=== PATIENT | male | born 1960 ===

== ENCOUNTER → 2017-12-11 | Outpatient (CLI) | payer OTHER ==
[~2017-12-11] MED LIST: IBUP-1623; OMNIPAQUE 350 MG/ML, 100ML BOTTLE ONE
== END | disposition home or self-care (01) ==
LOC: RAD 10:10
PROVIDERS: ATTEND Urology
DX: K44.9 Diaphragmatic hernia without obstruction or gangrene (principal); N50.9 Disorder of male genital organs, unspecified; D40.11 Neoplasm of uncertain behavior of right testis
CPT/HCPCS: 71260; 74177; Q9967

== ENCOUNTER 2018-05-10 09:35 | Emergency (ER) | payer MEDICAID, OTHER ==
[~2018-05-10] VITALS: Ht 170.2 cm; Wt 65.0 kg
[~2018-05-10 09:35] MED LIST changes: -OMNIPAQUE 350 MG/ML, 100ML BOTTLE ONE
[2018-05-10 09:47] VITALS: BP 115/80
--- NOTE | 2018-05-10 09:51 | NUR ---
[place] [facility] [place] +EtOH. A&O to self. Lac to posterior head. Bleeding controlled. Placed on NIBP and pulse ox. Will continue to monitor.
[2018-05-10] MEDS ORDERED: PLEASE ENTER HEIGHT AND WEIGHT MC SCH (10:00)
[2018-05-10] MEDS ORDERED: DIPH,PERTUSS(ACELL),TET VAC/PF 0.5 ML IM-VACC ONE ×2 (10:00→10:13)
--- NOTE | 2018-05-10 11:23 | NUR ---
PT AMB IN HALLS WITH SISTER. VERY PERSISTENT ABOUT WANTING TO LEAVE. PA INFORMED. DC PAPERS RECEIVED
== END 2018-05-10 11:28 | disposition home or self-care (01) ==
LOC: ED 11:22
DX: S01.01XA Laceration without foreign body of scalp, initial encounter (principal); F10.120 Alcohol abuse with intoxication, uncomplicated; W01.0XXA Fall on same level from slipping, tripping and stumbling without subsequent striking against object, initial encounter; Y93.89 Activity, other specified; Y92.89 Other specified places as the place of occurrence of the external cause; Y99.8 Other external cause status; Y90.9 Presence of alcohol in blood, level not specified
CPT/HCPCS: 70450; 72125; 90471; 90715; 99284

== ENCOUNTER 2018-05-10 16:10 | Emergency (ER) | payer MEDICAID ==
[~2018-05-10] VITALS: Ht 162.6 cm; Wt 85.0 kg
--- NOTE | 2018-05-10 16:24 | NUR ---
pt was here this am same thing fell and head lac on sameera dc home pt was drinking again and fell having another lac on left side of head call light within reach given report to primary rn
--- NOTE | 2018-05-10 16:43 | NUR ---
FIRST CONTACT WITH PT: Pt resting on gurney connected to potline monitor, NIBP, and continous pulse ox. Recieved report from AILYN Flores. All questions answered. NADN. Pt here prior today with ETOH intoxication. Pt has ETOH odor on breath. Pt has inappropriate speech. Pt Alert to self and situation. All safety measures in place. Call light within reach.
[2018-05-10] MEDS ORDERED: LIDOCAINE 1%-EPI 1:100K, 20ML SQ ONE (17:00)
--- NOTE | 2018-05-10 17:08 | NUR ---
Pt transported to imaging on [facility].
--- NOTE | 2018-05-10 17:29 | NUR ---
Pt back to room from CT. Pt ambulating down medeiros by self. Pt escorted to restroom by ED senior staff specialized employment. NADN.
--- NOTE | 2018-05-10 18:05 | NUR ---
Provided report to AILYN Yeung. All questions answered.
--- NOTE | 2018-05-10 18:48 | NUR ---
Sitter at bedside with pt for observation to keep pt safe from falls. CARMENN. Pt resting on gurney with warm blanket provided.
--- NOTE | 2018-05-10 19:00 | NUR ---
Provided report to AILYN Garcia. All questions answered.
--- NOTE | 2018-05-10 20:00 | NUR ---
PT SLEEPING ON GURNEY, SIDE RAILS UP AND SITTER IN ROOM FOR SAFETY.
--- NOTE | 2018-05-10 21:15 | NUR ---
PT RESTING ON ELISE CELESTE, DENIES NEEDS AT THIS TIME, MONITORS APPLIED, SIDERAILS UP X2, CALL LIGHT WITHIN REACH.
[2018-05-10 22:58] VITALS: BP 121/78
--- NOTE | 2018-05-10 22:59 | NUR ---
ASSISTED PT UP IN ROOM, PT ALERT AND ANSWERS QUESTIONS APPROPRIATELY, PT STATED "I FEEL REALLY DIZZY", ASSISTED PT BACK ON GURNEY, MONITORS IN PLACE, CALL LIGHT WITHIN REACH.
--- NOTE | 2018-05-10 23:50 | NUR ---
PT A&OX4, ABLE TO AMBULATE WITHOUT DIFFICULTY, PROVIDED PT WITH SNACK, DISCUSSED PT TO BE DISCHARGED, PT VERBALIZED UNDERSTANDING AND AGREEMENT
== END 2018-05-10 23:53 | disposition home or self-care (01) ==
LOC: ED 17:29
DX: S01.01XA Laceration without foreign body of scalp, initial encounter (principal); F10.220 Alcohol dependence with intoxication, uncomplicated; W18.30XA Fall on same level, unspecified, initial encounter; Y93.89 Activity, other specified; Y92.89 Other specified places as the place of occurrence of the external cause; Y99.8 Other external cause status
CPT/HCPCS: 13121; 70450; 99285

== ENCOUNTER 2018-06-05 14:36 | Inpatient (IN) | payer MEDICAID ==
[~2018-06-05] VITALS: Ht 170.2 cm; Wt 73.3 kg
--- NOTE | 2018-06-05 15:12 | NUR ---
ERP TO THE BS
--- NOTE | 2018-06-05 15:44 | NUR ---
SLEEPING AROUSES EASY
--- NOTE | 2018-06-05 17:47 | NUR ---
PT NOTED TO BE IN AF AT A RAPID RATE 12 LEAD COMPLETED AND ERP AWARE IV AND FLUIDS STARTED
[2018-06-05] MEDS ORDERED: SODIUM CHLORIDE FLUSH 10ML SYR IVF ONE (18:00)
[2018-06-05] MEDS ORDERED: SODIUM CHLORIDE 0.9% 1,000ML IVBOLUS ONE (18:00)
--- NOTE | 2018-06-05 18:59 | NUR ---
REPORT TO CESAR INCLUDING PT TO 2ND LTR THEN EVAL HR 2ND LTR INFUSING
--- NOTE | 2018-06-05 19:00 | NUR ---
REPORT RECEIVED FROM AILYN COLLINS AT BEDSIDE, THIS RN TO ASSUME CARE AT THIS TIME. PT HAS HR 120-130'S, AFIB, NO ECTOPY. ERP SINAN AWARE AND AT BEDSIDE TO REASSESS. VERBAL ORDER RECEIVED FOR SECOND LITER NS BOLUS.
[2018-06-05] MEDS ORDERED: SODIUM CHLORIDE 0.9% 1,000 ML IV ONE ×2 (19:30)
--- NOTE | 2018-06-05 20:00 | NUR ---
ERP SINAN AT BEDSIDE. ERP AWARE HR REMAINS 130-140'S AFIB ON PIT RECORDER, NO ECTOPY AFTER SECOND LITER NS. RN AWAITING ORDERS AT THIS TIME.
[2018-06-05] MEDS ORDERED: DILTIAZEM 5 MG/ML, 10ML ONE (20:09)
--- NOTE | 2018-06-05 20:20 | NUR ---
PT MEDICATED PER EMAR, TOLERATED WELL. DILTIAZEM PUSHED SLOWLY OVER 5 MIN. PT IS SLEEPING INTERMITTENTLY, AWAKENS TO VOICE. ORIENTED X 4 WHEN AWAKE. NEURO INTACT. HR 100-110'S, AFIB, NO ECTOPY S/P DILTIAZEM. PT AWAITING LAB AND CXR RESULTS.
[2018-06-05 20:25] LABS: MEAN CORPUSCULAR HEMOGLOBIN 24.4 pg (27.5-34.5); MEAN CORPUSCULAR VOLUME 78.9 fL (81-97); MEAN PLATELET VOLUME 7.2 fL (7.4-10.4); PLATELET COUNT 207 x10^3/uL (130-400); RED BLOOD COUNT 4.59 x10^6/uL (4.38-5.82); RED CELL DISTRIBUTION WIDTH 19.4 % (9.4-14.8)
[2018-06-05] MEDS ORDERED: DILTIAZEM 5 MG/ML, 5ML IV ONE (20:30)
[2018-06-05 20:33] LABS: INTERNATIONAL NORMALIZED RATIO 0.97 (0.93-1.1); PROTHROMBIN TIME 10.2 Seconds (9.6-11.5)
--- NOTE | 2018-06-05 20:33 | NUR ---
DOT MENON NOTIFIED BP 91/46 S/P DILTIAZEM. HR 90-100'S AFIB WITH NO ECTOPY AT THIS TIME. NO ORDERS RECEIVED AT THIS TIME, WILL CONTINUE TO MONITOR.
[2018-06-05 20:35] LABS: ALANINE AMINOTRANSFERASE 51 U/L (12-78); ALBUMIN 2.4 g/dL (3.4-5.0); ANION GAP 13 mmol/L (5-15); CALCIUM 6.8 mg/dL (8.5-10.1); CHLORIDE 114 mmol/L (98-107); CREATININE 0.47 mg/dL (0.7-1.3)
[2018-06-05 20:39] LABS: ALKALINE PHOSPHATASE 89 U/L (45-117); BILIRUBIN,TOTAL 0.3 mg/dL (0.2-1.0); FREE T4 (FREE THYROXINE) 1.19 ng/dL (0.76-1.46); TOTAL PROTEIN 6.1 g/dL (6.4-8.2); TROPONIN I < 0.015 ng/mL (0.000-0.045)
[2018-06-05 20:47] LABS: BASOPHILS # (AUTO) 0.02 x10^3/uL (0-0.1); BASOPHILS % (AUTO) 1 % (0-1); EOSINOPHILS % (AUTO) 0 % (1-7); LYMPHOCYTES # (AUTO) 0.88 x10^3/uL (1-3.4); LYMPHOCYTES % (AUTO) 38 % (22-44); MD SCAN; MONOCYTES # (AUTO) 0.21 x10^3/uL (0.2-0.8); MONOCYTES % (AUTO) 9 % (2-9); NEUTROPHILS # (AUTO) 1.22 x10^3/uL (1.8-6.8); NEUTROPHILS % (AUTO) 52 % (42-75)
--- NOTE | 2018-06-05 21:04 | NUR ---
labs reviewed by DOT Ryan including glucose 67 and WBC 2.3. pt given soda x 2 per ERP instruction, tolerated well. pt sleeping intermittently, resps even and unlabored. HR 90's - 110's, afib with no ectopy. pt to be admitted, awaiting room assignment and transport.
[2018-06-05] MEDS ORDERED: DILTIAZEM 125 MG in SODIUM CHLORIDE 0.9% 100 ML IV SCH ×2 (21:30→23:30)
[2018-06-05] MEDS ORDERED: SODIUM CHLORIDE FLUSH 10ML SYR IVF PRN (21:30)
[2018-06-05] MEDS ORDERED: ONDANSETRON 2MG/ML, 2ML IVPush PRN (21:30)
--- NOTE | 2018-06-05 22:03 | NUR ---
pt incontinent of urine, linens and gown changed. delano-care provided. urinal placed at bedside. diltiazem gtt started, all monitors in place. HR 120's afib with no ectopy. Addendum: 06/05/18 at 2205 by NATHENEN pt incontinent of urine, linens and gown changed. delano-care provided. urinal placed at bedside. diltiazem gtt started, all monitors in place. HR 120's afib with no ectopy. pt is a&ox4, resps even and unlabored. pt updated with POC.
--- NOTE | 2018-06-05 22:14 | NUR ---
report called to receiving AILYN Burton pt awaiting transport to cardiac tele 518.
--- NOTE | 2018-06-05 22:20 | NUR ---
REPEAT FINGERSTICK BLOOD GLUCOSE 107.
--- NOTE | 2018-06-05 22:22 | NUR ---
PT A&O, RESPS EVEN AND UNLABORED, NEURO INTACT. PT URINATED USING URINAL, URINE SAMPLE COLLECTED AND SENT TO LAB. PT IS AFIB RATE 100'S ON MONITOR, NO ECTOPY. PT TRANSPORTED WITH BELONGINGS TO ROOM 518, DILTIAZEM INFUSING AT TIME OF TRANSPORT. NADN AT TRANSPORT.
[2018-06-05 22:32] VITALS: BP 101/72
[2018-06-05] MEDS: SODIUM CHLORIDE 0.9% 1,000 ML IV SCH (23:08)
[2018-06-05 23:48] LABS: AMPHETAMINE SCREEN, URINE Negative (Negative); BARBITURATE SCREEN, URINE Negative (Negative); BENZODIAZEPINE SCREEN, URINE Negative (Negative); CANNABINOID SCREEN, URINE Negative (Negative); COCAINE SCREEN, URINE Negative (Negative); METHADONE SCREEN, URINE Negative (Negative); OPIATE SCREEN, URINE Negative (Negative)
[2018-06-06 01:05] VITALS: BP 98/58
[2018-06-06 06:09] LABS: CHLORIDE 113 mmol/L (98-107)
[2018-06-06 06:15] LABS: MEAN CORPUSCULAR HEMOGLOBIN 25.4 pg (27.5-34.5); MEAN CORPUSCULAR VOLUME 77.1 fL (81-97); MEAN PLATELET VOLUME 7.1 fL (7.4-10.4); PLATELET COUNT 193 x10^3/uL (130-400); RED BLOOD COUNT 4.16 x10^6/uL (4.38-5.82); RED CELL DISTRIBUTION WIDTH 19.7 % (9.4-14.8)
[2018-06-06 06:26] LABS: ANION GAP 9 mmol/L (5-15); CALCIUM 6.9 mg/dL (8.5-10.1); THYROID STIMULATING HORMONE 0.342 mIU/L (0.358-3.740)
[2018-06-06] MEDS ORDERED: DILTIAZEM 125 MG in SODIUM CHLORIDE 0.9% 100 ML IV SCH ×2 (06:30→21:30)
[2018-06-06] MEDS: SODIUM CHLORIDE 0.9% 1,000 ML IV SCH (06:31)
[2018-06-06 06:39] LABS: BASOPHILS % (AUTO) 0 % (0-1); EOSINOPHILS # (AUTO) 0.01 x10^3/uL (0-0.4); EOSINOPHILS % (AUTO) 1 % (1-7); LYMPHOCYTES # (AUTO) 0.64 x10^3/uL (1-3.4); LYMPHOCYTES % (AUTO) 21 % (22-44); MD SCAN; MONOCYTES # (AUTO) 0.32 x10^3/uL (0.2-0.8); MONOCYTES % (AUTO) 11 % (2-9); NEUTROPHILS # (AUTO) 2.02 x10^3/uL (1.8-6.8); NEUTROPHILS % (AUTO) 67 % (42-75)
[2018-06-06 06:51] LABS: TROPONIN I < 0.015 ng/mL (0.000-0.045)
[2018-06-06 07:05] VITALS: BP 106/58
[2018-06-06] MEDS ORDERED: POTASSIUM CHLORIDE 20 MEQ, MVI ADULT 10 ML, FOLIC ACID 1 MG, MAGNESIUM SULFATE 1 GM in ... IV SCH (07:27)
[2018-06-06] MEDS ORDERED: ACETAMINOPHEN 325 MG TABLET PO PRN (07:30)
[2018-06-06] MEDS ORDERED: LORazepam 2 MG/ML, 1ML IV PRN ×5 (07:30)
[2018-06-06] MEDS ORDERED: ONDANSETRON 2MG/ML, 2ML IV PRN (07:30)
[2018-06-06] MEDS ORDERED: DEXTROSE 50%, 50ML SYRINGE IVPush ONE (07:30)
[2018-06-06] MEDS ORDERED: PANTOPRAZOLE 40 MG IV IVPush SCH (09:00)
[2018-06-06] MEDS: ENOXAPARIN 40 MG/0.4 ML SQ SCH (09:59)
[2018-06-06] MEDS: THIAMINE 100MG TABLET PO SCH ×2 (10:00→20:25)
[2018-06-06 10:51] LABS: ABSOLUTE RETICS # 0.031 x10^6/uL (0.5-1.5); RED BLOOD COUNT 4.13 x10^6/uL (4.38-5.82); RETICULOCYTE COUNT % 0.75 % (0.5-1.5)
[2018-06-06 13:10] VITALS: BP 121/68
[2018-06-06] MEDS: LORazepam 2 MG/ML, 1ML IV PRN ×2 (15:56→19:29)
[2018-06-06 19:26] VITALS: BP 129/80
[2018-06-07] MEDS: LORazepam 2 MG/ML, 1ML IV PRN ×3 (00:38→12:55)
[2018-06-07 01:26] VITALS: BP 124/70
[2018-06-07] MEDS: SODIUM CHLORIDE 0.9% 1,000 ML IV SCH (01:29)
[2018-06-07 05:22] LABS: BASOPHILS % (AUTO) 0 % (0-1); EOSINOPHILS # (AUTO) 0.03 x10^3/uL (0-0.4); EOSINOPHILS % (AUTO) 1 % (1-7); LYMPHOCYTES # (AUTO) 0.63 x10^3/uL (1-3.4); LYMPHOCYTES % (AUTO) 19 % (22-44); MD NO; MEAN CORPUSCULAR HEMOGLOBIN 25.1 pg (27.5-34.5); MEAN CORPUSCULAR HGB CONC 32.5 g/dL (33.2-36.2); MEAN CORPUSCULAR VOLUME 77.1 fL (81-97); MEAN PLATELET VOLUME 7.9 fL (7.4-10.4); MONOCYTES # (AUTO) 0.34 x10^3/uL (0.2-0.8); MONOCYTES % (AUTO) 11 % (2-9); NEUTROPHILS # (AUTO) 2.26 x10^3/uL (1.8-6.8); NEUTROPHILS % (AUTO) 69 % (42-75); PLATELET COUNT 147 x10^3/uL (130-400); RED BLOOD COUNT 3.86 x10^6/uL (4.38-5.82); RED CELL DISTRIBUTION WIDTH 19.3 % (9.4-14.8)
[2018-06-07 05:26] LABS: CHLORIDE 106 mmol/L (98-107)
[2018-06-07 05:33] LABS: ALANINE AMINOTRANSFERASE 43 U/L (12-78); ALBUMIN 2.2 g/dL (3.4-5.0); ALKALINE PHOSPHATASE 76 U/L (45-117); ANION GAP 5 mmol/L (5-15); BILIRUBIN,TOTAL 0.7 mg/dL (0.2-1.0); CALCIUM 7.4 mg/dL (8.5-10.1); CREATININE 0.54 mg/dL (0.7-1.3); TOTAL PROTEIN 5.6 g/dL (6.4-8.2)
[2018-06-07] MEDS: PANTOPROZOLE 40MG TABLET PO SCH (06:32)
[2018-06-07 07:25] VITALS: BP 145/77
[2018-06-07] MEDS: D5%-0.9% NACL 1,000 ML IV SCH (07:48)
[2018-06-07] MEDS: THIAMINE 100MG TABLET PO SCH ×2 (09:48→21:11)
[2018-06-07] MEDS: ENOXAPARIN 40 MG/0.4 ML SQ SCH (09:49)
[2018-06-07] MEDS: POTASSIUM CHLORIDE 20 MEQ, MVI ADULT 10 ML, FOLIC ACID 1 MG, MAGNESIUM SULFATE 1 GM in ... IV SCH (09:49)
[2018-06-07] MEDS ORDERED: ALUMINUM/MAG/SIMETHICONE 30 ML UDC PO ONE (10:00)
[2018-06-07 10:31] LABS: TROPONIN I < 0.015 ng/mL (0.000-0.045)
[2018-06-07 13:10] VITALS: BP 125/78
[2018-06-07 19:35] VITALS: BP 139/80
[2018-06-08 01:29] VITALS: BP 126/70
[2018-06-08] MEDS: D5%-0.9% NACL 1,000 ML IV SCH ×2 (01:51→08:38)
[2018-06-08] MEDS: PANTOPROZOLE 40MG TABLET PO SCH (05:11)
[2018-06-08 05:36] LABS: MEAN CORPUSCULAR HEMOGLOBIN 25.5 pg (27.5-34.5); MEAN CORPUSCULAR HGB CONC 33.1 g/dL (33.2-36.2); MEAN CORPUSCULAR VOLUME 77.2 fL (81-97); MEAN PLATELET VOLUME 8.3 fL (7.4-10.4); PLATELET COUNT 153 x10^3/uL (130-400); RED CELL DISTRIBUTION WIDTH 19.1 % (9.4-14.8)
[2018-06-08 05:40] LABS: ANION GAP 4 mmol/L (5-15); CALCIUM 7.8 mg/dL (8.5-10.1); CHLORIDE 105 mmol/L (98-107); CREATININE 0.57 mg/dL (0.7-1.3)
[2018-06-08 07:15] VITALS: BP 115/73
[2018-06-08 07:33] LABS: MD YES
[2018-06-08 07:34] LABS: <PLATELET ESTIMATE> ADEQUATE; <PLT MORPHOLOGY> NORMAL PLT MORPH; ANISOCYTOSIS 1+; EOS#(MANUAL) 0.09 x10^3/uL (0.0-0.4); EOS% (MANUAL) 2 % (1-7); LYMPH#(MANUAL) 0.47 x10^3/uL (1-3.4); LYMPHS% (MANUAL) 11 % (22-44); MICROCYTOSIS 1+; MONOS#(MANUAL) 0.43 x10^3/uL (0.3-2.7); MONOS% (MANUAL) 10 % (2-9); SEG#(MANUAL) 3.31 x10^3/uL (1.8-6.8); SEGS% (MANUAL) 77 % (42-75)
[2018-06-08 07:35] LABS: HYPOCHROMIA 1+; TARGET CELLS 1+
[2018-06-08] MEDS: ENOXAPARIN 40 MG/0.4 ML SQ SCH (08:38)
[2018-06-08] MEDS: THIAMINE 100MG TABLET PO SCH (08:38)
[2018-06-08] MEDS: POTASSIUM CHLORIDE 20 MEQ, MVI ADULT 10 ML, FOLIC ACID 1 MG, MAGNESIUM SULFATE 1 GM in ... IV SCH (09:44)
[2018-06-08 13:05] VITALS: BP 125/78
[2018-06-08] MEDS ORDERED: THIA100T67 PO (14:35)
[2018-06-08] MEDS ORDERED: PANT40TA5 PO (14:35)
[2018-06-08] MEDS ORDERED: FOLI-17 PO (14:35)
== END 2018-06-08 15:43 | disposition home or self-care (01) | DRG 309 ==
LOC: ED 18:00 → EDIP 21:19 → 5SO 22:25
PROVIDERS: ADMIT Internal Medicine; ATTEND Internal Medicine
DX: I48.0 Paroxysmal atrial fibrillation (principal); C16.9 Malignant neoplasm of stomach, unspecified; J98.11 Atelectasis; D50.9 Iron deficiency anemia, unspecified; D63.8 Anemia in other chronic diseases classified elsewhere; E16.2 Hypoglycemia, unspecified; E83.39 Other disorders of phosphorus metabolism; E87.6 Hypokalemia; F10.220 Alcohol dependence with intoxication, uncomplicated; Z59.0 Homelessness; Y90.9 Presence of alcohol in blood, level not specified
CPT/HCPCS: 36415; J7042; 71045; 80048; 80053; 80307; 82728; 82962; 83540; 83550; 83735; 84100; 84439; 84443; 84481; 84484; 85025; 85045; 85610; 85730; 93005; 93306; 96361; 96374; G0378; J1650; J2405; J3475; J3480; C9113; J2060; J7030

== ENCOUNTER 2018-07-02 14:42 | Emergency (ER) | payer MEDICAID ==
[~2018-07-02] VITALS: Ht 170.2 cm; Wt 59.0 kg
[~2018-07-02 14:42] MED LIST changes: +FOLI-17 PO; +PANT40TA5 PO; +THIA100T67 PO
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
--- NOTE | 2018-07-02 14:56 | NUR ---
CUATEAT RN. PT DESATED TO 87% WHILE SLEEPING, 2L NC O2 APPLIED, PULSE OX 96%. FALL PRECAUTIONS IN PLACE WITH SIDE RAILS UP.
--- NOTE | 2018-07-02 15:13 | NUR ---
BEDSIDE REPORT AND CARE TO PRIMARY AILYN AMES.
--- NOTE | 2018-07-02 15:32 | NUR ---
ASSUMED CARE OF PT. PT IS RESTING. PT HAS EQUAL CHEST RISE AND GOOD CAP REFILL. VSS.
--- NOTE | 2018-07-02 16:55 | NUR ---
PT STILL RESTING IN BED.
--- NOTE | 2018-07-02 19:19 | NUR ---
PT REMAINS IN BED. PT STILL VERY DIFFICULT TO AROUSE SECONDARY TO INTOXICATION. PT RESTING IN ROOM. VSS.
--- NOTE | 2018-07-02 21:04 | NUR ---
BLANKET PROVIDED TO PT, PT REMAINS IN DEEP SLEEP. ATTEMPTED TO AMBULATE AND STRUGGLING WITH SITTING UP.
--- NOTE | 2018-07-02 23:11 | NUR ---
PT AWAKING WISHING TO LEAVE. PT GIVEN DC INSTRUCTIONS AFTER AMBULATING SAFELY AND EATING SOME FOOD. PT OFFERED A TAXI VOUCHER AND REFUSED. REPORTED I LIVE CLOSE AND WILL WALK HOME. PT REPORTED HE NO LONGER FELT "DRUNK, IM GOOD PLUS I WANT TO GO GET A DRINK ANYWAYS" PT ENCOURAGE TO SEEK COUNSELING FOR HEAVY DRINKING AND GIVEN RESOURCES HANDOUT. PT DC AT THIS TIME. Patient/Caregiver given discharge instructions and they have confirmed that they understand the instructions. Patient ambulatory with steady gait.
[2018-07-02 23:13] VITALS: BP 133/74
== END 2018-07-02 23:14 | disposition home or self-care (01) ==
LOC: ED 17:07
DX: F10.220 Alcohol dependence with intoxication, uncomplicated (principal)
CPT/HCPCS: 99283

== ENCOUNTER 2018-07-31 15:01 | Emergency (ER) | payer MEDICAID ==
[~2018-07-31] VITALS: Ht 167.6 cm; Wt 70.0 kg
--- NOTE | 2018-07-31 15:05 | NUR ---
DECOMINATED IN SHOWER ROOM FOR VISUALIZED BED BUGS BEFORE BEING ROOMED
--- NOTE | 2018-07-31 15:30 | NUR ---
BIB BY EMERSON. BYSTANDER CALLED EMS AFTER PATIENT UNABLE TO STAND AFTER FALLING DOWN D/T PRESUMED INTOXICATION. DENIES ETOH/ILLICITS. HOWEVER, STRONG SMELL OF ETOH NOTED PATIENT UNABLE TO STAY AWAKE FOR CONVERSATION/UNABLE TO AMBULATE NO FOCAL DEFICITS OR TRAUMA NOTED EMS REPORTS FSBS OF 165
--- NOTE | 2018-07-31 17:21 | NUR ---
PATIENT AWOKEN FOR REASSESSMENT- REMAINS DROWSY/UNABLE TO TOLERATE PO FLUIDS CONTINUES TO REQUIRE OXYGEN (2L) WILL CONTINUE TO MONITOR FOR READINESS FOR ROAD TEST
--- NOTE | 2018-07-31 18:13 | NUR ---
WITH RE-ASSESSMENT PATIENT NOW AWAKE/INTERACTIVE PROVIDED WITH PO FLUIDS/SOLIDS/CLOTHES (PRIOR CLOTHES CONTAMINATED) TOLERATING PO/AMBULATED W/OUT DIFFICULTY PROVIDED WITH TAXI VOUCHER HE WAS DISCHARGED
[2018-07-31 18:18] VITALS: BP 124/70
== END 2018-07-31 18:27 | disposition home or self-care (01) ==
LOC: ED 18:15
DX: F10.220 Alcohol dependence with intoxication, uncomplicated (principal); I48.91 Unspecified atrial fibrillation
CPT/HCPCS: 99283

== ENCOUNTER 2018-08-20 09:34 | Emergency (ER) | payer MEDICAID ==
[~2018-08-20] VITALS: Ht 165.1 cm; Wt 68.0 kg
[2018-08-20 09:46] VITALS: BP 114/74
--- NOTE | 2018-08-20 10:28 | NUR ---
PT IN ROOM AT THIS TIME. PT PLACED ON O2 AND NIBP MONITORING. PT IN BED RESTING COMFORTABLY. CRACKER, CEREAL, AND WATER PROVIDED.
[2018-08-20] MEDS ORDERED: THIAMINE 100MG TABLET PO ONE (11:00)
--- NOTE | 2018-08-20 11:12 | NUR ---
PT IN BED AND AWAKE AT THIS TIME. PT USING URINAL. PT HAS NO WANTS OR NEEDS AT THIS TIME. PT STATES HE DOESN'T THINK HE CAN WALK AT THIS TIME. PT ENCOURAGED TO EAT FOOD AND DRINK WATER PROVIDED.
[2018-08-20] MEDS ORDERED: THIAMINE 100MG TABLET ONE (12:53)
--- NOTE | 2018-08-20 12:57 | NUR ---
PT WATCHING TV AT THIS TIME. ALL FOOD PROVIDED WAS CONSUMED. PT HAS DRANK 3 12 OZ BOTTLES OF WATER AND HAS A FORTH IN HAND. RESPS EVEN AND UNLABORED.
== END 2018-08-20 14:11 | disposition home or self-care (01) ==
LOC: ED 10:07
DX: F10.229 Alcohol dependence with intoxication, unspecified (principal); Z59.0 Homelessness
CPT/HCPCS: 99283

== ENCOUNTER 2019-01-16 18:32 | Emergency (ER) | payer MEDICAID ==
[~2019-01-16] VITALS: Ht 170.2 cm; Wt 73.0 kg
--- NOTE | 2019-01-16 18:40 | NUR ---
TASK RN: 58 Y/O MALE BIB AMBULANCE WITH C/O ETOH. PER REPORT POLICE CALLED EMS D/T PT BEING UNABLE TO AMBULATE. WHEN THEY ARRIVED PT STATED HE ALSO HAD CP FOR TWO DAYS. PT STATES "MY CHEST HURTS. I DRINK A LOT OF ALCOHOL. I DRINK VODKA. A LOT." PT PLACED ON CONT PULSE OX,NIBP. PT GIVEN WARM BLANKET. BEDSIDE REPORT TO ROSS. PT ALSO STATES "I HAVE CANCER" AND POINTS TO ABDOMINAL AREA.
[2019-01-16] MEDS ORDERED: MAALOX/HYOSCYAMINE/LIDOCAINE 45 ML BTL ONE (18:59)
[2019-01-16] MEDS ORDERED: MAALOX/HYOSCYAMINE/LIDOCAINE 45 ML BTL PO ONE (19:00)
--- NOTE | 2019-01-16 19:01 | NUR ---
MEDS ADMINISTERED PER MAY. PT RESTING ON GURNEY WATCHING TV. LAB AT BEDSIDE.
[2019-01-16 19:19] LABS: ALBUMIN 2.7 g/dL (3.4-5.0); ANION GAP 7 mmol/L (5-15); CALCIUM 7.3 mg/dL (8.5-10.1); CHLORIDE 117 mmol/L (98-107)
[2019-01-16 19:25] LABS: ALANINE AMINOTRANSFERASE 30 U/L (12-78); ALKALINE PHOSPHATASE 96 U/L (45-117); BILIRUBIN,TOTAL 0.4 mg/dL (0.2-1.0); CREATININE 0.71 mg/dL (0.7-1.3); TOTAL PROTEIN 7.7 g/dL (6.4-8.2); TROPONIN I < 0.015 ng/mL (0.000-0.045)
[2019-01-16 19:45] LABS: MD YES; MEAN CORPUSCULAR HEMOGLOBIN 20.1 pg (27.5-34.5); MEAN CORPUSCULAR VOLUME 67.8 fL (81-97); MEAN PLATELET VOLUME 6.7 fL (7.4-10.4); PLATELET COUNT 454 x10^3/uL (130-400); RED BLOOD COUNT 3.78 x10^6/uL (4.38-5.82); RED CELL DISTRIBUTION WIDTH 19.3 % (9.4-14.8)
[2019-01-16 19:48] LABS: ANISOCYTOSIS 1+; BAND#(MANUAL) 0.15 x10^3/uL; BANDS%(MANUAL) 2 % (0-7); BASOS#(MANUAL) 0.23 x10^3/uL (0-0.1); BASOS% (MANUAL) 3 % (0-1); EOS#(MANUAL) 0.38 x10^3/uL (0.0-0.4); EOS% (MANUAL) 5 % (1-7); HYPOCHROMIA 1+; LYMPH#(MANUAL) 1.35 x10^3/uL (1-3.4); LYMPHS% (MANUAL) 18 % (22-44); MICROCYTOSIS 1+; MONOS#(MANUAL) 0.08 x10^3/uL (0.3-2.7); MONOS% (MANUAL) 1 % (2-9); SEG#(MANUAL) 5.33 x10^3/uL (1.8-6.8); SEGS% (MANUAL) 71 % (42-75)
[2019-01-16 19:49] LABS: MEAN CORPUSCULAR HGB CONC 29.6 g/dL (33.2-36.2); TARGET CELLS 1+
[2019-01-16 19:50] LABS: <PLATELET ESTIMATE> INCREASED; <PLT MORPHOLOGY> NORMAL PLT MORPH
--- NOTE | 2019-01-16 20:04 | NUR ---
ALL RESULTS ARE BACK AT THIS TIME. CHART UP FOR RECHECK.
[2019-01-16 20:36] VITALS: BP 122/77
--- NOTE | 2019-01-16 20:36 | NUR ---
PT RESTING ON [employer] WATCHING TV. ELISE. CALL LIGHT IN REACH.
--- NOTE | 2019-01-16 21:05 | NUR ---
PT ELOPED HOSPITAL PRIOR TO DISCHARGE. NO IV PLACED.
== END 2019-01-16 21:06 | disposition left against medical advice (07) ==
LOC: ED 20:18
DX: R07.89 Other chest pain (principal); F10.129 Alcohol abuse with intoxication, unspecified; F17.200 Nicotine dependence, unspecified, uncomplicated; Y90.0 Blood alcohol level of less than 20 mg/100 ml
CPT/HCPCS: 36415; 71045; 80053; 84484; 85025; 93005; 99284

== ENCOUNTER 2019-08-09 10:28 | Emergency (ER) | payer MEDICAID ==
[~2019-08-09] VITALS: Ht 170.2 cm; Wt 63.6 kg
[2019-08-09 11:45] LABS: ALANINE AMINOTRANSFERASE 117 U/L (12-78); ALBUMIN 2.8 g/dL (3.4-5.0); ALKALINE PHOSPHATASE 172 U/L (45-117); ANION GAP 11 mmol/L (5-15); BILIRUBIN,TOTAL 0.2 mg/dL (0.2-1.0); CALCIUM 7.6 mg/dL (8.5-10.1); CHLORIDE 114 mmol/L (98-107); CREATININE 0.54 mg/dL (0.7-1.3); TOTAL PROTEIN 7.1 g/dL (6.4-8.2)
[2019-08-09 11:53] LABS: RED BLOOD COUNT 3.93 x10^6/uL (4.38-5.82)
[2019-08-09 11:54] LABS: MD YES; MEAN CORPUSCULAR HEMOGLOBIN 30.7 pg (27.5-34.5); MEAN CORPUSCULAR HGB CONC 32.8 g/dL (33.2-36.2); MEAN CORPUSCULAR VOLUME 93.8 fL (81-97); MEAN PLATELET VOLUME 6.5 fL (7.4-10.4); PLATELET COUNT 153 x10^3/uL (130-400); RED CELL DISTRIBUTION WIDTH 22.6 % (9.4-14.8)
[2019-08-09 11:57] LABS: ANISOCYTOSIS 1+; BAND#(MANUAL) 0.03 x10^3/uL; BANDS%(MANUAL) 1 % (0-7); EOS#(MANUAL) 0.12 x10^3/uL (0.0-0.4); EOS% (MANUAL) 4 % (1-7); HYPOCHROMIA 1+; LYMPH#(MANUAL) 0.21 x10^3/uL (1-3.4); LYMPHS% (MANUAL) 7 % (22-44); METAMYELOCYTES# (MANUAL) 0.03 x10^3/uL (0-0); METAMYELOCYTES% (MANUAL) 1 % (0-1); MONOS#(MANUAL) 0.27 x10^3/uL (0.3-2.7); MONOS% (MANUAL) 9 % (2-9); SEG#(MANUAL) 2.34 x10^3/uL (1.8-6.8); SEGS% (MANUAL) 78 % (42-75)
[2019-08-09 11:58] LABS: <PLATELET ESTIMATE> ADEQUATE; <PLT MORPHOLOGY> NORMAL PLT MORPH; TARGET CELLS 1+
[2019-08-09] MEDS ORDERED: THIAMINE 100MG TABLET ONE (12:18)
[2019-08-09] MEDS ORDERED: THIAMINE 100MG TABLET PO ONE (12:30)
[2019-08-09] MEDS: NS + 40MEQ KCL 1,000 ML IV SCH ×2 (13:25→17:25)
--- NOTE | 2019-08-09 14:46 | NUR ---
BREAK RN: MEAL TRAY PROVIDED. PT SITTING UP IN [facility], EATING. NAD NOTED.
--- NOTE | 2019-08-09 15:08 | NUR ---
PT CONSUMED ALL OF MEAL. SBA TO BR, PT WITH STEADY GAIT. IVF 2/3 COMPLETE. PT TALKING IN COMPLETE SENTENCES. A&OX4.
[2019-08-09 15:10] VITALS: BP 110/67
--- NOTE | 2019-08-09 17:00 | NUR ---
PT RESTING WITH EYES CLOSED, EASILY AROUSED.
--- NOTE | 2019-08-09 17:56 | NUR ---
PT TO BR WITH A STEADY GAIT. PT REQUESTING TO GO HOME.
== END 2019-08-09 18:00 | disposition home or self-care (01) ==
LOC: ED 12:29
DX: K70.10 Alcoholic hepatitis without ascites (principal); E87.6 Hypokalemia; R74.8 Abnormal levels of other serum enzymes; F10.229 Alcohol dependence with intoxication, unspecified; I48.91 Unspecified atrial fibrillation; Y90.9 Presence of alcohol in blood, level not specified
CPT/HCPCS: 36415; 80051; 80053; 80307; 83690; 85025; 96365; 96366; 96376; 99284; J3480

== ENCOUNTER 2019-09-29 14:53 | Emergency (ER) | payer MEDICAID ==
[~2019-09-29] VITALS: Ht 167.6 cm; Wt 59.1 kg
[~2019-09-29 14:53] MED LIST changes: -PANT40TA5 PO; +PANT40TA6 PO
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
--- NOTE | 2019-09-29 15:18 | NUR ---
PT TO CT VIA [facility].
--- NOTE | 2019-09-29 15:28 | NUR ---
PT RETURNS FROM CT.
[2019-09-29 16:00] VITALS: BP 88/52
--- NOTE | 2019-09-29 16:00 | NUR ---
C-COLLAR REMOVED PER ER PA.
[2019-09-29] MEDS ORDERED: PERMETHRIN CRM 5%, 60GM ONE (17:35)
--- NOTE | 2019-09-29 17:50 | NUR ---
PT VOIDED IN URINAL. A&OX4 NOW, AMBULATORY. NOTED PT TO HAVE BUGS ALL OVER HIS CLOTHES. PT STATES HE'S STAYING ON [address]. ER PA NOTIFIED. PERMETHRIN CREAM PROVIDED TO PT AND INSTRUCTED ON USE. D/C INSTRUCTIONS RV'WD WITH PT. PT AMBULATED OUT OF ED WITHOUT DIFFICULTY. ROOM TERMINALLY CLEANED.
[2019-09-29] MEDS ORDERED: PERMETHRIN CRM 5%, 60GM TP SCH (19:00)
== END 2019-09-29 17:50 | disposition home or self-care (01) ==
LOC: ED 16:41
DX: S09.90XA Unspecified injury of head, initial encounter (principal); F10.120 Alcohol abuse with intoxication, uncomplicated; G89.11 Acute pain due to trauma; M54.2 Cervicalgia; B86 Scabies; W18.39XA Other fall on same level, initial encounter; Y93.01 Activity, walking, marching and hiking; Y92.488 Other paved roadways as the place of occurrence of the external cause; Y99.8 Other external cause status; Y90.9 Presence of alcohol in blood, level not specified
CPT/HCPCS: 70450; 72125; 99285

== ENCOUNTER 2019-10-06 12:02 | Emergency (ER) | payer MEDICAID ==
[~2019-10-06] VITALS: Ht 167.6 cm; Wt 59.0 kg
[~2019-10-06 12:02] MED LIST changes: +PANT40TA5 PO; -PANT40TA6 PO
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
--- NOTE | 2019-10-06 12:40 | NUR ---
PT IN CT AT THIS TIME.
--- NOTE | 2019-10-06 13:42 | NUR ---
PT SLEEPING ON GURNEY. RESPS EVEN AND UNLABORED.
[2019-10-06 14:14] VITALS: BP 103/65
--- NOTE | 2019-10-06 14:49 | NUR ---
PT SLEEPING ON GURNEY. RESPS EVEN AND UNLABORED. PT STILL DROWSY.
--- NOTE | 2019-10-06 15:00 | NUR ---
Patient given discharge instructions and they have confirmed that they understand the instructions. Patient ambulatory with steady gait.
== END 2019-10-06 15:01 | disposition home or self-care (01) ==
LOC: ED 13:00
DX: S09.90XA Unspecified injury of head, initial encounter (principal); R55 Syncope and collapse; E87.6 Hypokalemia; G40.909 Epilepsy, unspecified, not intractable, without status epilepticus; I48.91 Unspecified atrial fibrillation; F10.120 Alcohol abuse with intoxication, uncomplicated; W19.XXXA Unspecified fall, initial encounter; Y93.89 Activity, other specified; Y92.89 Other specified places as the place of occurrence of the external cause; Y99.8 Other external cause status; Y90.0 Blood alcohol level of less than 20 mg/100 ml
CPT/HCPCS: 70450; 99284

== ENCOUNTER 2019-10-10 13:13 | Emergency (ER) | payer MEDICAID ==
[~2019-10-10] VITALS: Ht 170.2 cm; Wt 69.0 kg
--- NOTE | 2019-10-10 13:28 | NUR ---
PT IN [facility]. CARDIAC, NIBP, AND O2 MONITORING IN PLACE
[2019-10-10 14:01] VITALS: BP 116/72
[2019-10-10 14:18] LABS: MEAN CORPUSCULAR HEMOGLOBIN 32.6 pg (27.5-34.5); MEAN CORPUSCULAR HGB CONC 32.6 g/dL (33.2-36.2); MEAN CORPUSCULAR VOLUME 99.9 fL (81-97); MEAN PLATELET VOLUME 6.4 fL (7.4-10.4); PLATELET COUNT 137 x10^3/uL (130-400); RED BLOOD COUNT 2.82 x10^6/uL (4.38-5.82); RED CELL DISTRIBUTION WIDTH 15.8 % (9.4-14.8)
[2019-10-10 14:28] LABS: ALBUMIN 2.6 g/dL (3.4-5.0); ANION GAP 10 mmol/L (5-15); CALCIUM 7.6 mg/dL (8.5-10.1); CHLORIDE 98 mmol/L (98-107)
[2019-10-10 14:32] LABS: ALANINE AMINOTRANSFERASE 38 U/L (12-78); ALKALINE PHOSPHATASE 238 U/L (45-117); BILIRUBIN,TOTAL 0.9 mg/dL (0.2-1.0); CREATININE 0.77 mg/dL (0.7-1.3); TOTAL PROTEIN 6.7 g/dL (6.4-8.2)
[2019-10-10 14:53] LABS: BASOPHILS # (AUTO) 0.01 x10^3/uL (0-0.1); BASOPHILS % (AUTO) 0 % (0-1); EOSINOPHILS # (AUTO) 0.01 x10^3/uL (0-0.4); EOSINOPHILS % (AUTO) 0 % (1-7); LYMPHOCYTES # (AUTO) 0.06 x10^3/uL (1-3.4); LYMPHOCYTES % (AUTO) 1 % (22-44); MONOCYTES # (AUTO) 0.26 x10^3/uL (0.2-0.8); MONOCYTES % (AUTO) 4 % (2-9); NEUTROPHILS # (AUTO) 6.06 x10^3/uL (1.8-6.8); NEUTROPHILS % (AUTO) 95 % (42-75)
[2019-10-10 14:54] LABS: MD SCAN
[2019-10-10] MEDS ORDERED: POTASSIUM CHLORIDE 20 MEQ, MAGNESIUM SULFATE 1 GM, FOLIC ACID 1 MG, THIAMINE 200 MG, MV... IV ONE (15:00)
--- NOTE | 2019-10-10 15:44 | NUR ---
LUNCH BREAK NOTE: SPOKE TO PHARMACY, MARIANO, AND BANANA BAG CAN BE GIVEN IN TWO HOURS. OK PER DR. ROLLINS.
== END 2019-10-10 14:18 ==
LOC: ED 14:17
DX: G40.909 Epilepsy, unspecified, not intractable, without status epilepticus (principal); S00.91XA Abrasion of unspecified part of head, initial encounter; F10.10 Alcohol abuse, uncomplicated; Y90.0 Blood alcohol level of less than 20 mg/100 ml; R55 Syncope and collapse; I48.91 Unspecified atrial fibrillation; Z86.19 Personal history of other infectious and parasitic diseases; X58.XXXA Exposure to other specified factors, initial encounter; Y93.89 Activity, other specified; Y92.89 Other specified places as the place of occurrence of the external cause; Y99.8 Other external cause status
CPT/HCPCS: 36415; 70450; 80053; 80307; 85025; 93005; 99285; J3411; J3475; J3480; J7121

== ENCOUNTER 2019-10-19 11:28 | Emergency (ER) | payer MEDICAID ==
[~2019-10-19] VITALS: Ht 165.1 cm; Wt 65.0 kg
--- NOTE | 2019-10-19 11:39 | NUR ---
PT HAS NS INFUSING UPON ARRIVAL. HE IS CONNECTED TO A CARDIAC AND O2 MONITOR, W NC O2 APPLIED AT 2L. I WILL ALLOW SLOW GTT OF NS, AND AWAIT MD ASSESSMENT PRIOR TO ANY FURTHER PLAN OF CARE.
--- NOTE | 2019-10-19 11:45 | NUR ---
IDA IS AT THE BEDSIDE FOR CONSULT.
--- NOTE | 2019-10-19 11:46 | NUR ---
UPON PA-C ASSESSMENT, PT STATED THAT HE IS SUFFERING FROM CHEST PAIN. NO FURTHER DETAILS IN REGARD TO PAIN WERE VOICED. CLOTHING REMOVED FOR HEAD TO TOE ASSESSMENT.
[2019-10-19 12:28] LABS: BASOPHILS # (AUTO) 0.03 x10^3/uL (0-0.1); BASOPHILS % (AUTO) 1 % (0-1); EOSINOPHILS # (AUTO) 0.23 x10^3/uL (0-0.4); EOSINOPHILS % (AUTO) 8 % (1-7); LYMPHOCYTES # (AUTO) 0.25 x10^3/uL (1-3.4); LYMPHOCYTES % (AUTO) 8 % (22-44); MD NO; MEAN CORPUSCULAR HEMOGLOBIN 33.3 pg (27.5-34.5); MEAN PLATELET VOLUME 5.9 fL (7.4-10.4); MONOCYTES # (AUTO) 0.25 x10^3/uL (0.2-0.8); MONOCYTES % (AUTO) 8 % (2-9); NEUTROPHILS # (AUTO) 2.29 x10^3/uL (1.8-6.8); NEUTROPHILS % (AUTO) 75 % (42-75); PLATELET COUNT 243 x10^3/uL (130-400); RED BLOOD COUNT 2.58 x10^6/uL (4.38-5.82); RED CELL DISTRIBUTION WIDTH 15.8 % (9.4-14.8)
[2019-10-19 12:36] LABS: ALBUMIN 2.2 g/dL (3.4-5.0); ANION GAP 6 mmol/L (5-15); CALCIUM 6.8 mg/dL (8.5-10.1); CHLORIDE 118 mmol/L (98-107)
[2019-10-19 12:41] LABS: ALANINE AMINOTRANSFERASE 54 U/L (12-78); ALKALINE PHOSPHATASE 179 U/L (45-117); BILIRUBIN,TOTAL 0.3 mg/dL (0.2-1.0); CREATININE 0.42 mg/dL (0.7-1.3); TOTAL PROTEIN 6.1 g/dL (6.4-8.2); TROPONIN I < 0.015 ng/mL (0.000-0.045)
--- NOTE | 2019-10-19 12:44 | NUR ---
PT SLEEPING SONOROUSLY ON AN E.[facility]. [facility]. THERE ARE NO ACUTE CHANGES NOTED SINCE HIS ARRIVAL TO THE E.R. TODAY. I WILL CONTINUE TO MONITOR AND TREAT ORDERED, WELL PRN WHILE AWAITING THE RESULTS FROM DIAGNOSTIC STUDIES.
[2019-10-19] MEDS ORDERED: SODIUM CHLORIDE FLUSH 10ML SYR IVF ONE (13:00)
[2019-10-19] MEDS ORDERED: SODIUM CHLORIDE 0.9% 1,000ML IVBOLUS ONE (13:00)
[2019-10-19] MEDS ORDERED: PANTOPRAZOLE 40 MG IV ONE (13:08)
[2019-10-19 13:20] LABS: % IRON SATURATION 23 % (20-55); IRON LEVEL 27 mcg/dL (65-175); TOTAL IRON BINDING CAPACITY 115 mcg/dL (250-450)
[2019-10-19] MEDS ORDERED: PANTOPRAZOLE 40 MG IV IVPush ONE (13:30)
[2019-10-19] MEDS ORDERED: DIPH,PERTUSS(ACELL),TET VAC/PF 0.5 ML IM-VACC ONE ×2 (14:00→14:04)
--- NOTE | 2019-10-19 14:03 | NUR ---
PT TO AND FROM [employer] W TECH. HE TOLERATED THE IMAGING WELL.
--- NOTE | 2019-10-19 14:52 | NUR ---
JAGDEEP ROBERTSON IS ASSUMING CARE OF THIS PT WHILE I HAVE A LUNCH BREAK. SBAR WAS EXCHANGED AT THE BEDSIDE.
[2019-10-19 15:00] LABS: MICROSCOPIC NOT IND
[2019-10-19 15:13] LABS: AMPHETAMINE SCREEN, URINE Negative (Negative); BARBITURATE SCREEN, URINE Negative (Negative); BENZODIAZEPINE SCREEN, URINE Negative (Negative); CANNABINOID SCREEN, URINE Negative (Negative); COCAINE SCREEN, URINE Negative (Negative); METHADONE SCREEN, URINE Negative (Negative); OPIATE SCREEN, URINE Negative (Negative)
--- NOTE | 2019-10-19 15:24 | NUR ---
TASK RN: PT SITTING AT BEDSIDE, REQUESTING DC. PT MADE AWARE THAT CHART IS UP FOR RECHECK AND AWAITING MD BARNETT FOR DISPO. PT CALM AND COOPERATIVE W POC.
[2019-10-19 15:46] VITALS: BP 99/61
== END 2019-10-19 16:13 | disposition home or self-care (01) ==
LOC: ED 12:06
DX: F10.129 Alcohol abuse with intoxication, unspecified (principal); R94.31 Abnormal electrocardiogram [ECG] [EKG]; R41.82 Altered mental status, unspecified; R07.9 Chest pain, unspecified; I48.91 Unspecified atrial fibrillation; Y90.9 Presence of alcohol in blood, level not specified
CPT/HCPCS: 36415; 70450; 71045; 80053; 80307; 81003; 82607; 83540; 83550; 83690; 84484; 85025; 90471; 90715; 93005; 96374; 99285; C9113; J7030; 96372

== ENCOUNTER 2019-10-28 03:55 | Emergency (ER) | payer MEDICAID ==
[~2019-10-28] VITALS: Ht 177.8 cm; Wt 68.0 kg
[2019-10-28 03:59] VITALS: BP 94/56
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
--- NOTE | 2019-10-28 05:00 | NUR ---
cleaned and dressed bilat knees
--- NOTE | 2019-10-28 05:01 | NUR ---
pt unable to ambulate without falling into wall, back on [facility], notified
--- NOTE | 2019-10-28 05:58 | NUR ---
pt sleeping in [facility] in [place]
--- NOTE | 2019-10-28 06:41 | NUR ---
pt ambulated without asstance discharged to home
== END 2019-10-28 06:44 | disposition home or self-care (01) ==
LOC: ED 04:56
DX: S80.211A Abrasion, right knee, initial encounter (principal); F10.220 Alcohol dependence with intoxication, uncomplicated; I48.91 Unspecified atrial fibrillation; E87.6 Hypokalemia; G40.909 Epilepsy, unspecified, not intractable, without status epilepticus; W01.0XXA Fall on same level from slipping, tripping and stumbling without subsequent striking against object, initial encounter; Y93.89 Activity, other specified; Y92.89 Other specified places as the place of occurrence of the external cause; Y99.8 Other external cause status; Y90.0 Blood alcohol level of less than 20 mg/100 ml
CPT/HCPCS: 99282

== ENCOUNTER 2019-11-01 08:31 | Emergency (ER) | payer MEDICAID ==
[~2019-11-01] VITALS: Ht 167.6 cm; Wt 50.0 kg
[2019-11-01 09:41] LABS: ALANINE AMINOTRANSFERASE 92 U/L (12-78); ALBUMIN 2.9 g/dL (3.4-5.0); ANION GAP 9 mmol/L (5-15); CALCIUM 7.9 mg/dL (8.5-10.1); CHLORIDE 114 mmol/L (98-107); CREATININE 0.51 mg/dL (0.7-1.3)
[2019-11-01 09:45] LABS: ALKALINE PHOSPHATASE 233 U/L (45-117); BILIRUBIN,TOTAL 0.2 mg/dL (0.2-1.0); TOTAL PROTEIN 7.6 g/dL (6.4-8.2)
[2019-11-01 09:59] LABS: BASOPHILS # (AUTO) 0.03 x10^3/uL (0-0.1); BASOPHILS % (AUTO) 1 % (0-1); EOSINOPHILS # (AUTO) 0.11 x10^3/uL (0-0.4); EOSINOPHILS % (AUTO) 3 % (1-7); LYMPHOCYTES # (AUTO) 0.38 x10^3/uL (1-3.4); LYMPHOCYTES % (AUTO) 11 % (22-44); MD NO; MEAN CORPUSCULAR HEMOGLOBIN 32.4 pg (27.5-34.5); MEAN CORPUSCULAR HGB CONC 32.7 g/dL (33.2-36.2); MEAN CORPUSCULAR VOLUME 99.2 fL (81-97); MEAN PLATELET VOLUME 6.8 fL (7.4-10.4); MONOCYTES # (AUTO) 0.32 x10^3/uL (0.2-0.8); MONOCYTES % (AUTO) 10 % (2-9); NEUTROPHILS # (AUTO) 2.48 x10^3/uL (1.8-6.8); NEUTROPHILS % (AUTO) 75 % (42-75); PLATELET COUNT 364 x10^3/uL (130-400); RED BLOOD COUNT 3.19 x10^6/uL (4.38-5.82); RED CELL DISTRIBUTION WIDTH 14.5 % (9.4-14.8)
[2019-11-01] MEDS ORDERED: THIAMINE 100 MG/ML, 2ML IM ONE (10:00)
--- NOTE | 2019-11-01 10:11 | NUR ---
With reassessmnet. no change in neuro exam. remians quite intoxicated so exam limited. perrla 3mm x2, moving all extremities Ct read, blood work reviewed. Will plan on extended MTF as etohg level quite high
[2019-11-01] MEDS ORDERED: THIAMINE 100 MG/ML, 2ML ONE (10:47)
--- NOTE | 2019-11-01 10:53 | NUR ---
Medicated per johnathan Roused to reasses and attempt to get him to eat/drink water-no success-remains too intoxicated
[2019-11-01] MEDS ORDERED: POTASSIUM CHLORIDE 20 MEQ PACKET PO ONE (11:30)
--- NOTE | 2019-11-01 12:09 | NUR ---
BREAK RN: PT SLEEPING ON GURNEY. RESP EVEN AND UNLABORED.
[2019-11-01] MEDS ORDERED: POTASSIUM CHLORIDE 20 MEQ PACKET ONE (12:59)
--- NOTE | 2019-11-01 13:07 | NUR ---
MEDICATED PER EMAR NOW AWAKE AND TOLERATING PO FLUIDS WILL ATTEMPT TO ROAD CHALLENGE SHORTLY
[2019-11-01 18:41] VITALS: BP 137/87
--- NOTE | 2019-11-01 18:42 | NUR ---
TASK RN- VITAL SIGNS UPDATED. PT UP OUT OF BED. DRESSING HIMSELF AND ABLE TO AMBULATE TO DC WINDOW WITHOUT ASSISTANCE.
== END 2019-11-01 18:45 | disposition home or self-care (01) ==
LOC: ED 10:28
DX: S80.212A Abrasion, left knee, initial encounter (principal); S80.211A Abrasion, right knee, initial encounter; S80.812A Abrasion, left lower leg, initial encounter; S80.811A Abrasion, right lower leg, initial encounter; S09.90XA Unspecified injury of head, initial encounter; F10.120 Alcohol abuse with intoxication, uncomplicated; I48.91 Unspecified atrial fibrillation; G40.909 Epilepsy, unspecified, not intractable, without status epilepticus; X58.XXXA Exposure to other specified factors, initial encounter; Y93.89 Activity, other specified; Y92.89 Other specified places as the place of occurrence of the external cause; Y99.8 Other external cause status; Y90.9 Presence of alcohol in blood, level not specified
CPT/HCPCS: 36415; 70450; 80053; 80307; 85025; 96372; 99284; J3411

== ENCOUNTER 2019-11-05 08:47 | Emergency (ER) | payer MEDICAID ==
[~2019-11-05] VITALS: Ht 165.1 cm; Wt 60.0 kg
[~2019-11-05 08:47] MED LIST changes: -PANT40TA5 PO; +PANT40TA6 PO
--- NOTE | 2019-11-05 10:43 | NUR ---
PO CHALLENGE AND ROAD TEST UNREMARKABLE- PROVIDER MADE AWARE
[2019-11-05 11:00] VITALS: BP 100/50
--- NOTE | 2019-11-05 11:05 | NUR ---
Patient/Caregiver given discharge instructions and they have confirmed that they understand the instructions. Patient ambulatory with steady gait.
== END 2019-11-05 11:12 | disposition home or self-care (01) ==
LOC: ED 08:53
DX: F10.220 Alcohol dependence with intoxication, uncomplicated (principal); I48.91 Unspecified atrial fibrillation; Y90.9 Presence of alcohol in blood, level not specified
CPT/HCPCS: 99283

== ENCOUNTER 2019-11-25 14:41 | Emergency (ER) | payer MEDICAID ==
[~2019-11-25] VITALS: Ht 170.2 cm; Wt 53.0 kg
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
[2019-11-25 15:24] LABS: ANION GAP 9 mmol/L (5-15); CALCIUM 7.4 mg/dL (8.5-10.1); CHLORIDE 110 mmol/L (98-107); CREATININE 0.55 mg/dL (0.7-1.3)
--- NOTE | 2019-11-25 16:03 | NUR ---
PT SITTING UPRIGHT ON [employer]. PT DENIES ANY NEEDS AT THIS TIME. PT REPOSITIONED FOR COMFORT. CALL LIGHT WITHIN REACH AND FALL PRECAUTIONS IN PLACE.
[2019-11-25] MEDS ORDERED: NS + 20MEQ KCL 1,000 ML IV ONE (16:27)
[2019-11-25] MEDS: NS + 20MEQ KCL 1,000 ML IV SCH ×2 (16:30→18:50)
--- NOTE | 2019-11-25 17:03 | NUR ---
PT SITTING UPRIGHT ON BED. PT STATES "I WANNA GO HOME AND GET OUT OF HERE". PT RESPONDING APPROPRIATLY TO STAFF. PT DENIES NEED TO USE BATHROOM AND NO PAIN AT THIS TIME. CALL LIGHT WITHIN REACH, FALL PRECAUTIONS IN PLACE. NO ADDITIONAL NEEDS AT THIS TIME.
[2019-11-25 18:02] VITALS: BP 95/55
--- NOTE | 2019-11-25 18:03 | NUR ---
PT SITTING UPRIGHT ON GURNEY WITH EYES CLOSED. PT DENIES ANY NEEDS AT THIS TIME. DENIES PAIN. CALL LIGHT WITHIN REACH, FALL PRECAUTIONS IN PLACE.
[2019-11-25] MEDS ORDERED: POTASSIUM CHLORIDE 20 MEQ TAB.ER.PRT ONE (18:40)
--- NOTE | 2019-11-25 18:55 | NUR ---
BEDSIDE REPORT GIVEN TO ADAM LEWIS RN.
[2019-11-25] MEDS ORDERED: POTASSIUM CHLORIDE 20 MEQ TAB.ER.PRT PO ONE (19:00)
--- NOTE | 2019-11-25 19:23 | NUR ---
Pt sitting in chair. Ambulated to bathroom and back. Stable for D/C. Given prescription. Pt verbalized understanding.
== END 2019-11-25 19:25 | disposition home or self-care (01) ==
LOC: ED 17:46
DX: G92 Toxic encephalopathy (principal); F10.129 Alcohol abuse with intoxication, unspecified; G40.909 Epilepsy, unspecified, not intractable, without status epilepticus; I48.91 Unspecified atrial fibrillation; Y90.0 Blood alcohol level of less than 20 mg/100 ml
CPT/HCPCS: 36415; 80048; 80307; 96365; 96366; 99284; J3480; 96374; 99283

== ENCOUNTER 2020-01-11 23:26 | Emergency (ER) | payer MEDICAID ==
[~2020-01-11] VITALS: Ht 170.2 cm; Wt 59.1 kg
--- NOTE | 2020-01-11 23:33 | NUR ---
PT TO BE DECONTAMINATED PRIOR TO ASSESSMENT
--- NOTE | 2020-01-11 23:55 | NUR ---
PT BIB EMS, PT STATES DRINKING "3 GALLONS OF VODKA" TODAY. PT FOUND TO HAVE BUGS ON HIM, PT STATES THAT IT IS LICE. PT TO BE DECONTAMINATED
--- NOTE | 2020-01-12 00:33 | NUR ---
PT DECONTAMINATED, PLACED IN NEW ROOM, RECTAL TEMP TAKEN, PT SLURRING SPEECH AND DOZING INTERMITENTLY AT THIS TIME
--- NOTE | 2020-01-12 00:43 | NUR ---
PT'S TEMP WAS 93.2. PT GIVEN MULTIPLE WARM BLANKETS AND BEAR HUGGER APPLIED TO WARM PT.
[2020-01-12 03:02] VITALS: BP 94/53
--- NOTE | 2020-01-12 03:42 | NUR ---
Task RN: Discharge instructions given. All questions and concerns addressed. Patient ambulatory with a steady gait. Belongings with patient.
== END 2020-01-12 03:44 | disposition home or self-care (01) ==
LOC: ED 23:47
DX: G31.2 Degeneration of nervous system due to alcohol (principal)
CPT/HCPCS: 99283

== ENCOUNTER 2020-02-01 10:32 | Emergency (ER) | payer MEDICAID ==
[~2020-02-01] VITALS: Ht 167.6 cm; Wt 63.0 kg
[2020-02-01] MEDS ORDERED: THIAMINE 100 MG/ML, 2ML IM SCH (11:00)
[2020-02-01] MEDS ORDERED: SODIUM CHLORIDE FLUSH 10ML SYR IVF ONE (11:00)
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
[2020-02-01] MEDS ORDERED: THIAMINE 100 MG/ML, 2ML ONE (11:18)
--- NOTE | 2020-02-01 11:31 | NUR ---
IM Thiamine given, pt still confused, speech more clear. VS updated.
[2020-02-01 11:39] LABS: BASOPHILS % (AUTO) 1 % (0-1); EOSINOPHILS % (AUTO) 0 % (1-7); LYMPHOCYTES % (AUTO) 2 % (22-44); MEAN CORPUSCULAR HEMOGLOBIN 31.7 pg (27.5-34.5); MEAN CORPUSCULAR HGB CONC 32.5 g/dL (33.2-36.2); MEAN PLATELET VOLUME 7.6 fL (7.4-10.4); MONOCYTES % (AUTO) 5 % (2-9); NEUTROPHILS % (AUTO) 92 % (42-75); PLATELET COUNT 367 x10^3/uL (130-400); RED BLOOD COUNT 3.35 x10^6/uL (4.38-5.82)
[2020-02-01 11:41] LABS: MD NO
[2020-02-01 11:48] LABS: ALANINE AMINOTRANSFERASE 69 U/L (12-78); ALBUMIN 2.2 g/dL (3.4-5.0); ANION GAP 10 mmol/L (5-15); CALCIUM 7.8 mg/dL (8.5-10.1); CHLORIDE 111 mmol/L (98-107)
[2020-02-01 11:53] LABS: ALKALINE PHOSPHATASE 348 U/L (45-117); BILIRUBIN,TOTAL 0.6 mg/dL (0.2-1.0); TOTAL PROTEIN 7.8 g/dL (6.4-8.2); TROPONIN I < 0.015 ng/mL (0.000-0.045)
[2020-02-01 12:12] LABS: INTERNATIONAL NORMALIZED RATIO 1.1 (0.93-1.1); PROTHROMBIN TIME 11.6 Seconds (9.6-11.5)
--- NOTE | 2020-02-01 12:46 | NUR ---
Pt to be DC'd post MTF. Ccollar removed.
[2020-02-01 13:55] VITALS: BP 102/63
--- NOTE | 2020-02-01 13:55 | NUR ---
Attempted to ambulate pt, unable to stand upright on his own at this time.
== END 2020-02-01 15:15 | disposition home or self-care (01) ==
LOC: ED 14:12
DX: R07.89 Other chest pain (principal); R40.1 Stupor; F10.220 Alcohol dependence with intoxication, uncomplicated; I48.91 Unspecified atrial fibrillation; Z59.0 Homelessness; Y90.9 Presence of alcohol in blood, level not specified
CPT/HCPCS: 36415; 70450; 71045; 72125; 80053; 80320; 84484; 85025; 85610; 96372; 99285; J3411; G0480

== ENCOUNTER 2020-10-01 14:11 | Emergency (ER) | payer MEDICAID ==
[~2020-10-01] VITALS: Ht 157.5 cm; Wt 60.0 kg
[~2020-10-01 14:11] MED LIST changes: -FOLI-17 PO; +FOLI1TAB32 PO
[2020-10-01 14:16] VITALS: BP 108/69
--- NOTE | 2020-10-01 14:25 | NUR ---
ERMD AT BEDSIDE FOR ASSESSMENT. PT TO BE MTF. PT CONNECTED TO ALL MONITORING. CALL LIGHT IN REACH.
--- NOTE | 2020-10-01 15:42 | NUR ---
PT SLEEPING ON GURNEY. RESP EVEN AND UNLABORED. PT CONNECTED TO MONITORING. CALL LIGHT IN REACH.
--- NOTE | 2020-10-01 17:28 | NUR ---
PT AMBULATED TO RESTROOM WITH STEADY GAIT. ERMD NOTIFIED OF PT READY FOR DC.
== END 2020-10-01 17:56 | disposition home or self-care (01) ==
LOC: ED 15:35
DX: F10.120 Alcohol abuse with intoxication, uncomplicated (principal); G40.909 Epilepsy, unspecified, not intractable, without status epilepticus; Y90.0 Blood alcohol level of less than 20 mg/100 ml
CPT/HCPCS: 99283